=== PATIENT | female | born 1995 | race African-American/Black ===

== ENCOUNTER 2025-06-20 12:46 | Emergency (ER) | payer OTHER ==
[~2025-06-20] VITALS: Ht 167.6 cm; Wt 79.0 kg
[2025-06-20 12:56] VITALS: O2SAT 100
[2025-06-20] MEDS ORDERED: CYCLOBENZAPRINE 10MG TABLET PO ONE (14:00)
[2025-06-20] MEDS ORDERED: KETOROLAC 15MG/ML VIAL IM ONE (14:00)
[2025-06-20] MEDS: CYCLOBENZAPRINE 10MG TABLET PO SCH (16:51)
[2025-06-20] MEDS: LIDOCAINE 5% PATCH TOP SCH (16:51)
[2025-06-20] MEDS: KETOROLAC 15MG/ML VIAL IM SCH (16:51)
[2025-06-20] MEDS ORDERED: TOPUD MT (17:13)
[2025-06-20] MEDS ORDERED: IBUP-2437 MT (17:13)
[2025-06-20 17:29] VITALS: BP 121/71; PULSE 63; RESP 18; TEMP 36.7; O2SAT 100
== END 2025-06-20 17:32 | disposition home or self-care (01) ==
LOC: ER 12:46
DX: S39.012A Strain of muscle, fascia and tendon of lower back, initial encounter (principal); S16.1XXA Strain of muscle, fascia and tendon at neck level, initial encounter; V43.62XA Car passenger injured in collision with other type car in traffic accident, initial encounter; Y92.410 Unspecified street and highway as the place of occurrence of the external cause; Y93.89 Activity, other specified; Y99.8 Other external cause status
CPT/HCPCS: 99283; 81025; 96372; J1885